=== PATIENT | male | born 1950 | race Caucasian/White ===

== ENCOUNTER 2016-09-20 20:06 | Emergency (ER) | payer OTHER ==
[~2016-09-20] VITALS: Ht 182.9 cm; Wt 112.0 kg
[~2016-09-20 20:06] MED LIST: CARV12.52 PO; LOSA100T PO; TAMS0.4C4 PO; ULOR80TA2 PO; ZITH250T PO
[2016-09-20 20:19] VITALS: BP 125/78; PULSE 72; RESP 18; TEMP 98.3; O2SAT 96
[2016-09-20] MEDS ORDERED: TAMS5CAP PO (20:31)
[2016-09-20] MEDS ORDERED: ULOR80TA2 PO (20:31)
[2016-09-20] MEDS ORDERED: LEXA10TA PO (20:31)
[2016-09-20] MEDS ORDERED: CARV12.52 PO (20:31)
[2016-09-20] MEDS ORDERED: LOSA100T PO (20:31)
--- NOTE | 2016-09-20 21:05 | PD ---
HPI Chief Complaint: Injury Time Seen by Provider: 21:02 Travel History International Travel<30 days: No Contact w/Intl Traveler<30days: No Traveled to known affect area: No History of Present Illness HPI Patient is a 66-year-old male presenting with tongue injury. He states that yesterday morning he woke up with swelling and bruising and abrasion on the left side of his tongue. He is prone to night terrors and nightmares and is wondering if he bit down his tongue during the night. It did not wake him until morning. He suffers falls out of bed when having nightmares but does not believe he fell out of bed. Denies history of seizure disorder. He states that it was really swollen and some points he had difficulty breathing. He has reduced oral intake during that time due to discomfort. He states he sat occasional metallic taste in his mouth when he rinsed his mouth he would have small amount of bright blood in the saliva. He has much improved today but he is worried about infection taking hold. He denies any fever, chills, lymphadenopathy or neck or oropharyngeal swelling. He denies sore throat difficulty swallowing or breathing presently. He used ice chips which seemed to help with swelling. He is on daily aspirin 81 mg. Additionally states he's been having some abdominal discomfort today around the umbilicus bilaterally in the epigastrium that feels like "sour stomach". She's had intermittent nausea without vomiting. One episode of loose stool. Denies hematochezia and melena. Denies dysuria, increased urinary urgency and frequency. He states that when he was younger he was frequent nosebleeds and when he swallowed the blood it would cause stomach upset and similar symptoms. He does have a history of GERD and PUD as a young adult. Last tetanus vaccine less than 5 years. PFSH Past Medical History Autoimmune Disease: Yes (GILL'S DISEASE) Cancer: No Cardiovascular Problems: Yes (HTN) High Cholesterol: Yes Diminished Hearing: No Endocrine: No Gastrointestinal Disorders: No Gout: Yes Genitourinary: No Hepatitis: No Hiatal Hernia: No Hypertension: Yes Immune Disorder: Yes (gout) Kidney Stones: Yes Musculoskeletal: Yes (gout, neck pain cervical disc disease) Neurologic: No Reproductive: No Respiratory: Yes (FREQUENT PNEUMONIA) Immunizations Current: Yes Pneumonia: Yes Thyroid Disease: No Tetanus Vaccination: < 5 Years Influenza Vaccination: Yes Past Surgical History Abdominal Surgery: No AICD: No Cardiac Surgery: No Ear Surgery: No Endocrine Surgery: No Eye Surgery: Yes (LIDS, cataract surgery done january and february 2015) Genitourinary Surgery: Yes (PROSTRATE SURGERY) Gynecologic Surgery: No Neurologic Surgery: No Oral Surgery: No Pacemaker: No Prostatectomy: Yes (NOT REMOVED BUT STATES HAS SURGERY ON PROSTATE) Thoracic Surgery: Yes (bilat leg vein stripping BITLATERAL LEGS) Tonsillectomy: Yes Other Surgery: Yes Social History Alcohol Use: No Tobacco Use: No (QUIT 1991 SMOKED CIGS 1 PPD FOR 20 YRS ) Substance Use: No Allergies-Medications (Allergen,Severity, Reaction): Coded Allergies: Morphine (Verified Allergy, Severe, ITCHING, 09/20/16) Percocet (Verified Allergy, Severe, HALLUCINATION, 09/20/16) Percodan (Unverified Adverse Reaction, Severe, HALLUCINATION, 09/20/16) Codeine (Verified Adverse Reaction, Intermediate, NAUSEA, 09/20/16) Uncoded Allergies: DISSOLVING STITCHES (Adverse Reaction, Intermediate, 10/16/13) Reported Meds & Prescriptions Reported Meds & Active Scripts Active Amoxicillin 500 Mg Cap 500 Mg PO TID 5 Days Bentyl (Dicyclomine HCl) 10 Mg Cap 10 Mg PO QID Reported Lexapro (Escitalopram Oxalate) 10 Mg Tab 10 Mg PO DAILY Flomax (Tamsulosin HCl) 0.4 Mg Cap 0.4 Mg PO HS Uloric (Febuxostat) 80 Mg Tab 1 Tab PO DAILY Losartan (Losartan Potassium) 100 Mg Tab 100 Mg PO DAILY Carvedilol 12.5 Mg Tab 12.5 Mg PO BID Review of Systems Except as stated in HPI: all other systems reviewed are Neg Physical Exam Narrative GENERAL: Well-developed and well-nourished adult male in no acute distress. SKIN: Warm and dry. Good turgor without tenting. HEAD: Normocephalic and atraumatic. EYES: PERRL bilaterally, 3mm. EOMI bilaterally. No injection or icterus present. No proptosis. Lids without edema or erythema. ENT: Nasal mucosa pink and moist without discharge, septum intact and midline. The tongue does have mild edema on the left side with resolving ecchymosis. There is a mild abrasion laterally without any lacerations or bleeding or drainage. Buccal mucosa pink and moist. Oropharynx free of erythema, tonsillar hypertrophy, masses, swelling, asymmetry and exudates. Uvula midline and airway patent. NECK: Supple, no midline tenderness, crepitus or step-offs. Trachea midline, no JVD. No cervical or facial lymphadenopathy. CARDIOVASCULAR: Regular rate and rhythm without murmurs, rubs, clicks or gallops. RESPIRATORY: Clear to auscultation bilaterally with symmetrical rise and fall, no distress or use of accessory muscles. GASTROINTESTINAL: Mild. Umbilical and epigastric tenderness without rebounding or guarding. No discoloration. Normal bowel sounds all 4 quadrants. No masses or organomegaly present. MUSCULOSKELETAL: No gait disturbances. Patient freely moving all four extremities spontaneously. Extremities without clubbing, cyanosis, or edema. No obvious deformities. NEUROLOGIC: CN II-XII grossly intact. Awake and alert. Motor grossly within normal limits. Normal speech. PSYCHIATRIC: Appropriate mood and affect; insight and judgment normal. Data Data Last Documented VS Vital Signs Date Time Temp Pulse Resp B/P Pulse Ox O2 Delivery O2 Flow Rate FiO2 09/20/16 20:31 09/20/16 20:19 98.3 72 18 96 Orders Complete Blood Count With Diff (09/20/16 21:01) Comprehensive Metabolic Panel (09/20/16 21:01) Lipase (09/20/16 21:01) Prothrombin Time / Inr (Pt) (09/20/16 21:01) Act Partial Throm Time (Ptt) (09/20/16 21:01) Ondansetron Inj (Zofran Inj) (09/20/16 21:15) Famotidine Inj (Pepcid Inj) (09/20/16 21:15) Labs Laboratory Tests Test 09/20/16 21:00 White Blood Count 6.5 TH/MM3 Red Blood Count 5.14 MIL/MM3 Hemoglobin 15.6 GM/DL Hematocrit 45.4 % Mean Corpuscular Volume 88.3 FL Mean Corpuscular Hemoglobin 30.3 PG Mean Corpuscular Hemoglobin 34.4 % Concent Red Cell Distribution Width 13.1 % Platelet Count 154 TH/MM3 Mean Platelet Volume 7.4 FL Neutrophils (%) (Auto) 68.6 % Lymphocytes (%) (Auto) 23.4 % Monocytes (%) (Auto) 5.6 % Eosinophils (%) (Auto) 2.0 % Basophils (%) (Auto) 0.4 % Neutrophils # (Auto) 4.5 TH/MM3 Lymphocytes # (Auto) 1.5 TH/MM3 Monocytes # (Auto) 0.4 TH/MM3 Eosinophils # (Auto) 0.1 TH/MM3 Basophils # (Auto) 0.0 TH/MM3 CBC Comment DIFF FINAL Differential Comment Prothrombin Time 11.6 SEC Prothromb Time International 1.0 RATIO Ratio Activated Partial 30.5 SEC Thromboplast Time Sodium Level 142 MEQ/L Potassium Level 4.3 MEQ/L Chloride Level 107 MEQ/L Carbon Dioxide Level 27.2 MEQ/L Anion Gap 8 MEQ/L Blood Urea Nitrogen 16 MG/DL Creatinine 1.30 MG/DL Estimat Glomerular Filtration 55 ML/MIN Rate Random Glucose 91 MG/DL Calcium Level 9.2 MG/DL Total Bilirubin 1.0 MG/DL Aspartate Amino Transf 25 U/L (AST/SGOT) Alanine Aminotransferase 58 U/L (ALT/SGPT) Alkaline Phosphatase 91 U/L Total Protein 7.4 GM/DL Albumin 4.1 GM/DL Lipase 137 U/L MDM Medical Decision Making Medical Screen Exam Complete: Yes Emergency Medical Condition: Yes Interpretation(s) Laboratory Tests Test 09/20/16 21:00 White Blood Count 6.5 TH/MM3 (4.0-11.0) Red Blood Count 5.14 MIL/MM3 (4.50-5.90) Hemoglobin 15.6 GM/DL (13.0-17.0) Hematocrit 45.4 % (39.0-51.0) Mean Corpuscular Volume 88.3 FL (80.0-100.0) Mean Corpuscular Hemoglobin 30.3 PG (27.0-34.0) Mean Corpuscular Hemoglobin 34.4 % Concent (32.0-36.0) Red Cell Distribution Width 13.1 % (11.6-17.2) Platelet Count 154 TH/MM3 (150-450) Mean Platelet Volume 7.4 FL (7.0-11.0) Neutrophils (%) (Auto) 68.6 % (16.0-70.0) Lymphocytes (%) (Auto) 23.4 % (9.0-44.0) Monocytes (%) (Auto) 5.6 % (0.0-8.0) Eosinophils (%) (Auto) 2.0 % (0.0-4.0) Basophils (%) (Auto) 0.4 % (0.0-2.0) Neutrophils # (Auto) 4.5 TH/MM3 (1.8-7.7) Lymphocytes # (Auto) 1.5 TH/MM3 (1.0-4.8) Monocytes # (Auto) 0.4 TH/MM3 (0-0.9) Eosinophils # (Auto) 0.1 TH/MM3 (0-0.4) Basophils # (Auto) 0.0 TH/MM3 (0-0.2) CBC Comment DIFF FINAL Differential Comment Prothrombin Time 11.6 SEC (9.8-11.6) Prothromb Time International 1.0 RATIO Ratio Activated Partial 30.5 SEC Thromboplast Time (24.3-30.1) Sodium Level 142 MEQ/L (136-145) Potassium Level 4.3 MEQ/L (3.5-5.1) Chloride Level 107 MEQ/L (98-107) Carbon Dioxide Level 27.2 MEQ/L (21.0-32.0) Anion Gap 8 MEQ/L (5-15) Blood Urea Nitrogen 16 MG/DL (7-18) Creatinine 1.30 MG/DL (0.60-1.30) Estimat Glomerular Filtration 55 ML/MIN (>89) Rate Random Glucose 91 MG/DL (74-106) Calcium Level 9.2 MG/DL (8.5-10.1) Total Bilirubin 1.0 MG/DL (0.2-1.0) Aspartate Amino Transf 25 U/L (15-37) (AST/SGOT) Alanine Aminotransferase 58 U/L (12-78) (ALT/SGPT) Alkaline Phosphatase 91 U/L (45-117) Total Protein 7.4 GM/DL (6.4-8.2) Albumin 4.1 GM/DL (3.4-5.0) Lipase 137 U/L (73-393) Differential Diagnosis Tongue abrasion versus tongue contusion versus gastritis versus gastritis versus pancreatic pedis versus PUD Narrative Course Versus 66-year-old male with 2 day history of swelling and pain of the left side of the tongue after a likely benefit in the middle of night. It did not wake him up but when he was woke up in the morning he had pain and swelling. Reduced oral intake due to this. It has improved with application of ice and time. Minimal occasional scant bleeding. Tetanus are up-to-date. There is a small abrasion on the tongue and there is resolving ecchymosis only mild edema of the tongue laterally. The oropharynx is unremarkable. No evidence of airway compromise. The patient has a tooth was pulled on the left upper jaw he states that he frequently in his sleep we'll try to stick his tongue through the area and thinks he bit down on it. He's had no neurologic symptoms or signs of seizure disorder present or in the past. He is hemodynamically stable with normal vitals. He's having some abdominal discomfort, nausea and one episode of loose stool she relates to possibly ingesting small amount of blood. Belly is benign on exam only mild tenderness. Patient was given ranitidine, Zofran and ordered labs are unremarkable. Given prescription for Bentyl, amoxicillin for 5 days to prevent infection and recommended OTC Zantac and bland diet.See discharge paperwork for further instructions. The plan was discussed with the patient who acknowledged their understanding and agreement. Reinforced the follow-up with primary care is critically important. Patient instructed on emergent conditions that should prompt return to ED. Diagnosis Primary Impression: Tongue abnormality Additional Impression: Gastroenteritis Patient Instructions: Gastroenteritis (ED), General Instructions Additional Instructions: Take medications as prescribed Recommend bland, low-salt/low spice diet until gastrointestinal and tongue symptoms resolve Drink lots of fluids and stay well-hydrated OTC ibuprofen or Tylenol as needed for comfort Follow-up with PCP in 2-3 days Return to the ED for any acute worsening of symptoms Scripts Amoxicillin 500 Mg [id number] Mg PO TID 5 Days Ref 0 Prov:Poncho Rdz MD 09/20/16 Dicyclomine (Bentyl)10 Mg Cap10 Mg PO QID #12 CAP Ref 0 Prov:Poncho Rdz MD 09/20/16 Disposition: 01 DISCHARGE HOME Condition: Stable Tai Rodrigez III Sep 20, 2016 21:05
[2016-09-20] MEDS ORDERED: FAMOTIDINE 20 MG/2 ML VIAL IV PUSH ONE (21:15)
[2016-09-20] MEDS ORDERED: ONDANSETRON HCL 4 MG/2 ML VIAL IV PUSH ONE (21:15)
[2016-09-20 21:16] LABS: AUTOMATED NEUTROPHIL # 4.5 TH/MM3 (1.8-7.7); BASOPHIL % 0.4 % (0.0-2.0); EOSINOPHIL # 0.1 TH/MM3 (0-0.4); HEMATOCRIT 45.4 % (39.0-51.0); HEMO FLAGS DIFF FINAL; LYMPH % 23.4 % (9.0-44.0); LYMPHOCYTE # 1.5 TH/MM3 (1.0-4.8); MEAN CELL VOLUME 88.3 FL (80.0-100.0); MEAN CORPUSCULAR HEMOGLOBIN 30.3 PG (27.0-34.0); MEAN CORPUSCULAR HGB CONC 34.4 % (32.0-36.0); MONO % 5.6 % (0.0-8.0); NEUT % 68.6 % (16.0-70.0); PLATELET COUNT 154 TH/MM3 (150-450); RED BLOOD COUNT 5.14 MIL/MM3 (4.50-5.90); RED CELL DISTRIBUTION WIDTH 13.1 % (11.6-17.2); WHITE BLOOD COUNT 6.5 TH/MM3 (4.0-11.0)
[2016-09-20 21:24] LABS: CHLORIDE 107 MEQ/L (98-107); POTASSIUM 4.3 MEQ/L (3.5-5.1); SODIUM (NA) 142 MEQ/L (136-145)
[2016-09-20 21:28] LABS: ANION GAP 8 MEQ/L (5-15); BICARBONATE 27.2 MEQ/L (21.0-32.0); BLOOD UREA NITROGEN 16 MG/DL (7-18)
[2016-09-20 21:29] LABS: APTT (PATIENT) 30.5 SEC (24.3-30.1); PROTHROMBIN TIME - PATIENT 11.6 SEC (9.8-11.6)
[2016-09-20] MEDS ORDERED: DICY10 PO (21:29)
[2016-09-20] MEDS ORDERED: AMOX500C PO (21:29)
[2016-09-20 21:31] LABS: ALT (GPT) 58 U/L (12-78); AST (GOT) 25 U/L (15-37); GLOMERULAR FILTRATION RATE 55 ML/MIN (>89)
[2016-09-20 21:34] LABS: ALKALINE PHOSPHATASE 91 U/L (45-117)
== END 2016-09-20 21:44 | disposition home or self-care (01) ==
LOC: PHEFT 20:06
DX: K14.8 Other diseases of tongue (principal); K52.9 Noninfective gastroenteritis and colitis, unspecified; I10 Essential (primary) hypertension; Z87.442 Personal history of urinary calculi
CPT/HCPCS: 80053; 83690; 85025; 85610; 85730; 96374; 96375; 99283; J2405

== ENCOUNTER 2016-11-02 22:04 | Emergency (ER) | payer OTHER ==
[~2016-11-02] VITALS: Ht 182.9 cm; Wt 113.6 kg
[~2016-11-02 22:04] MED LIST changes: +AMOX500C PO; +DICY10 PO; +LEXA10TA PO; -TAMS0.4C4 PO; +TAMS5CAP PO; -ZITH250T PO
[2016-11-02 22:17] VITALS: BP 145/93; PULSE 85; RESP 18; TEMP 97.8; O2SAT 97
[2016-11-02] MEDS ORDERED: SODIUM CHLOR 0.9% 1000 ML INJ 1,000 ML IV ONE (22:56)
--- NOTE | 2016-11-02 22:56 | PD ---
HPI Chief Complaint: Abdominal Pain Time Seen by Provider: 22:42 Travel History International Travel<30 days: No Contact w/Intl Traveler<30days: No Traveled to known affect area: No History of Present Illness HPI The patient is a 66-year-old male with an extensive history of kidney stones who complains of right flank pain and blood in urination. The patient felt he passed 2 small stones when he urinated and shows me a picture on a cell phone of the stones in the toilet. He denies any fever, nausea, vomiting or diarrhea. He still complains of persistent pain in the right flank. He does have a history of gout. PFSH Past Medical History Hx Anticoagulant Therapy: Yes (81mg aspirin) Autoimmune Disease: Yes (GILL'S DISEASE) Cancer: No Cardiovascular Problems: Yes High Cholesterol: Yes Diminished Hearing: No Endocrine: No Gastrointestinal Disorders: No Gout: Yes Genitourinary: No Hepatitis: No Hiatal Hernia: No Hypertension: Yes Immune Disorder: Yes (gout) Kidney Stones: Yes Medical other: Yes (broken tooth, vertigo, tinnitus) Musculoskeletal: Yes (gout, neck pain cervical disc disease) Neurologic: No Reproductive: No Respiratory: Yes (FREQUENT PNEUMONIA) Immunizations Current: Yes Pneumonia: Yes Thyroid Disease: No Tetanus Vaccination: < 5 Years Influenza Vaccination: Yes Past Surgical History Abdominal Surgery: No AICD: No Cardiac Surgery: No Cholecystectomy: Yes Ear Surgery: No Endocrine Surgery: No Eye Surgery: Yes (LIDS, cataract surgery done january and february 2015) Genitourinary Surgery: Yes (PROSTATE SURGERY) Gynecologic Surgery: No Neurologic Surgery: No Oral Surgery: No Pacemaker: No Prostatectomy: Yes (NOT REMOVED BUT STATES HAS SURGERY ON PROSTATE) Thoracic Surgery: Yes (bilat leg vein stripping BITLATERAL LEGS) Tonsillectomy: Yes Other Surgery: Yes Social History Alcohol Use: No Tobacco Use: No (QUIT 1991 SMOKED CIGS 1 PPD FOR 20 YRS ) Substance Use: No Allergies-Medications (Allergen,Severity, Reaction): Coded Allergies: Morphine (Verified Allergy, Severe, ITCHING, 11/02/16) Percocet (Verified Allergy, Severe, HALLUCINATION, 11/02/16) Percodan (Unverified Adverse Reaction, Severe, HALLUCINATION, 11/02/16) Codeine (Verified Adverse Reaction, Intermediate, NAUSEA, 11/02/16) Uncoded Allergies: DISSOLVING STITCHES (Adverse Reaction, Intermediate, 10/16/13) Reported Meds & Prescriptions Reported Meds & Active Scripts Active Reported Lexapro (Escitalopram Oxalate) 10 Mg Tab 10 Mg PO DAILY Flomax (Tamsulosin HCl) 0.4 Mg Cap 0.4 Mg PO HS Uloric (Febuxostat) 80 Mg Tab 1 Tab PO DAILY Losartan (Losartan Potassium) 100 Mg Tab 100 Mg PO DAILY Carvedilol 12.5 Mg Tab 12.5 Mg PO BID Review of Systems Except as stated in HPI: all other systems reviewed are Neg Physical Exam Narrative GENERAL: The patient is alert, oriented 3 in moderate apparent distress with his right flank pain. His vital signs show blood pressure 145/93 but are otherwise normal. SKIN: Warm and dry. HEAD: Atraumatic. Normocephalic. EYES: Pupils equal and round. No scleral icterus. No injection or drainage. ENT: No nasal bleeding or discharge. Mucous membranes pink and moist. NECK: Trachea midline. No JVD. CARDIOVASCULAR: Regular rate and rhythm. No murmur appreciated. RESPIRATORY: No accessory muscle use. Clear to auscultation. Breath sounds equal bilaterally. GASTROINTESTINAL: Abdomen soft, with tenderness to direct palpation over the right flank, nondistended. Hepatic and splenic margins not palpable. There is a slight UVJ tenderness on the right. No guarding or rebound is present. MUSCULOSKELETAL: No obvious deformities. No clubbing. No cyanosis. No edema. NEUROLOGICAL: Awake and alert. No obvious cranial nerve deficits. Motor grossly within normal limits. Normal speech. PSYCHIATRIC: Appropriate mood and affect; insight and judgment normal. Data Data Last Documented VS Vital Signs Date Time Temp Pulse Resp B/P Pulse Ox O2 Delivery O2 Flow Rate FiO2 11/03/16 00:00 75 18 140/92 95 Room Air 11/02/16 22:17 97.8 Orders Complete Blood Count With Diff (11/02/16 22:56) Comprehensive Metabolic Panel (11/02/16 22:56) Urinalysis - C+S If Indicated (11/02/16 22:56) Ct Abd/Pel W/O Iv Contrast (11/02/16 22:56) Ecg Monitoring (11/02/16 22:56) Iv Access Insert/Monitor (11/02/16 22:56) Ketorolac Inj (Toradol Inj) (11/02/16 23:00) Ondansetron Inj (Zofran Inj) (11/02/16 23:00) Sodium Chloride 0.9% Flush (Ns Flush) (11/02/16 23:00) Sodium Chlor 0.9% 1000 Ml Inj (Ns 1000 M (11/02/16 22:56) Hydromorphone Pf Inj (Dilaudid Pf Inj) (11/02/16 23:00) Labs Laboratory Tests Test 11/02/16 23:05 White Blood Count 6.9 TH/MM3 Red Blood Count 4.82 MIL/MM3 Hemoglobin 14.8 GM/DL Hematocrit 42.4 % Mean Corpuscular Volume 88.0 FL Mean Corpuscular Hemoglobin 30.7 PG Mean Corpuscular Hemoglobin 34.8 % Concent Red Cell Distribution Width 12.4 % Platelet Count 152 TH/MM3 Mean Platelet Volume 7.8 FL Neutrophils (%) (Auto) 64.7 % Lymphocytes (%) (Auto) 25.4 % Monocytes (%) (Auto) 6.3 % Eosinophils (%) (Auto) 3.0 % Basophils (%) (Auto) 0.6 % Neutrophils # (Auto) 4.5 TH/MM3 Lymphocytes # (Auto) 1.8 TH/MM3 Monocytes # (Auto) 0.4 TH/MM3 Eosinophils # (Auto) 0.2 TH/MM3 Basophils # (Auto) 0.0 TH/MM3 CBC Comment DIFF FINAL Differential Comment Urine Color RED Urine Turbidity CLOUDY Urine pH 6.0 Urine Specific [place] 1.020 Urine Protein TRACE mg/dL Urine Glucose (UA) NEG mg/dL Urine Ketones NEG mg/dL Urine Occult Blood LARGE Urine Nitrite NEG Urine Bilirubin NEG Urine Leukocyte Esterase NEG Urine RBC INNUM /hpf Urine WBC 3-5 /hpf Urine Squamous Epithelial 0-5 /hpf Cells Urine Bacteria NONE /hpf Microscopic Urinalysis Comment CULT NOT INDICATED Sodium Level 144 MEQ/L Potassium Level 4.3 MEQ/L Chloride Level 109 MEQ/L Carbon Dioxide Level 26.6 MEQ/L Anion Gap 8 MEQ/L Blood Urea Nitrogen 23 MG/DL Creatinine 1.30 MG/DL Estimat Glomerular Filtration 55 ML/MIN Rate Random Glucose 97 MG/DL Calcium Level 8.8 MG/DL Total Bilirubin 0.4 MG/DL Aspartate Amino Transf 26 U/L (AST/SGOT) Alanine Aminotransferase 61 U/L (ALT/SGPT) Alkaline Phosphatase 95 U/L Total Protein 6.9 GM/DL Albumin 3.9 GM/DL MDM Medical Decision Making Medical Screen Exam Complete: Yes Emergency Medical Condition: Yes Medical Record Reviewed: Yes Interpretation(s) The CBC is normal. The complete metabolic profile shows a BUN of 23, GFR 55 but is otherwise unremarkable. The urine is red with large amount of blood and innumerable red cells but is otherwise normal and culture is not indicated. Differential Diagnosis Calcium oxalate stones, uric acid stones, urinary tract infection, acute cholecystitis, appendicitis Narrative Course The patient perceives his pain on the right flank but his 1.3 cm ureteral stone is on the left. The patient does have pain and he is not likely to pass this stone. He should follow-up with a urologist calling their office Saturday to set up an appointment. He is given Dilaudid, Phenergan, Flomax and Motrin. He already takes Flomax every morning. He should take the Motrin regularly, 1 tablet 3 times daily. Diagnosis Primary Impression: Left ureteral calculus Additional Instructions: As we discussed, you are unlikely to pass this stone on the left and you should follow-up with urologist as soon as possible. Call Saturday to set up an appointment. Do not drink alcohol or drive on the Dilaudid. You may wish to break the Dilaudid tablets in half. Med/Other Pt SpecificInfo: Prescription(s) given Scripts Ibuprofen 800 Mg [id number] Mg PO TID #45 TAB Ref 0 Prov:Raleigh Sauer MD 11/03/16 Hydromorphone (Dilaudid)2 Mg Tab2 Mg PO Q6H PRN (Pain Management) #30 TAB Ref 0 Prov:Raleigh Sauer MD 11/03/16 Promethazine (Phenergan)25 Mg Tab25 Mg PO Q6H PRN (Nausea/Vomiting) #30 TAB Ref 0 Prov:Raleigh Sauer MD 11/03/16 Tamsulosin (Flomax)0.4 Mg Cap0.4 Mg PO HS #30 CAP Ref 0 Prov:Raleigh Sauer MD 11/03/16 Disposition: 01 DISCHARGE HOME Condition: Stable Raleigh Sauer MD Nov 02, 2016 22:55
[2016-11-02 23:00] VITALS: BP 157/78; PULSE 72; RESP 18; O2SAT 95
[2016-11-02] MEDS ORDERED: ONDANSETRON HCL 4 MG/2 ML VIAL IVP ONE (23:00)
[2016-11-02] MEDS ORDERED: HYDROmorphone HCL PF 1 MG/ML VIAL IVS ONE (23:00)
[2016-11-02] MEDS ORDERED: KETOROLAC TROMETHAMINE 30 MG/ML (IVP) VIAL IVP ONE (23:00)
[2016-11-02] MEDS ORDERED: SODIUM CHLORIDE 0.9% FLUSH 5 ML FLUSH IVF PRN (23:00)
[2016-11-02 23:19] LABS: AUTOMATED NEUTROPHIL # 4.5 TH/MM3 (1.8-7.7); BASOPHIL % 0.6 % (0.0-2.0); EOSINOPHIL # 0.2 TH/MM3 (0-0.4); HEMATOCRIT 42.4 % (39.0-51.0); HEMO FLAGS DIFF FINAL; LYMPH % 25.4 % (9.0-44.0); LYMPHOCYTE # 1.8 TH/MM3 (1.0-4.8); MEAN CORPUSCULAR HEMOGLOBIN 30.7 PG (27.0-34.0); MEAN CORPUSCULAR HGB CONC 34.8 % (32.0-36.0); MONO % 6.3 % (0.0-8.0); NEUT % 64.7 % (16.0-70.0); PLATELET COUNT 152 TH/MM3 (150-450); RED BLOOD COUNT 4.82 MIL/MM3 (4.50-5.90); RED CELL DISTRIBUTION WIDTH 12.4 % (11.6-17.2); WHITE BLOOD COUNT 6.9 TH/MM3 (4.0-11.0)
[2016-11-02 23:23] LABS: BLOOD, URINE LARGE (NEG); GLUCOSE,URINE NEG (NEG); KETONE, URINE NEG (NEG); NITRITE,URINE NEG (NEG)
[2016-11-02 23:24] LABS: COMMENT (UR) CULT NOT INDICATED; CULTURE IF INDICATED CULT NOT INDICATED; RBC, URINE INNUM /hpf (0-3); SQUAMOUS EPITHELIAL CELL URINE 0-5 /hpf (0-5); URINE COLOR RED (YELLW/STRAW)
[2016-11-02 23:25] LABS: CHLORIDE 109 MEQ/L (98-107); POTASSIUM 4.3 MEQ/L (3.5-5.1); SODIUM (NA) 144 MEQ/L (136-145)
[2016-11-02 23:29] LABS: ANION GAP 8 MEQ/L (5-15); BICARBONATE 26.6 MEQ/L (21.0-32.0); BLOOD UREA NITROGEN 23 MG/DL (7-18)
[2016-11-02 23:32] LABS: ALT (GPT) 61 U/L (12-78); AST (GOT) 26 U/L (15-37); GLOMERULAR FILTRATION RATE 55 ML/MIN (>89)
[2016-11-02 23:34] LABS: TOTAL BILIRUBIN ADULT 0.4 MG/DL (0.2-1.0)
[2016-11-02 23:35] LABS: ALKALINE PHOSPHATASE 95 U/L (45-117)
[2016-11-03] VITALS: BP 140/92; PULSE 75; RESP 18; O2SAT 95
--- NOTE | 2016-11-03 00:16 | RADHPO ---
EXAM DATE/TIME: 11/02/2016 23:10 [facility] COMPARISON: CT ABDOMEN & PELVIS W/O CONTRAST, July 18, 2014, 17:26. INDICATIONS : Right sided flank pain with hematuria. ORAL CONTRAST: No oral contrast ingested. RADIATION DOSE: 27.38 CTDIvol (mGy) MEDICAL HISTORY : Renal calculi. Hypertension. Diabetes. SURGICAL HISTORY : Cholecystectomy. ENCOUNTER: Initial ACUITY: 1 day PAIN SCALE: 7/10 LOCATION: Right flank TECHNIQUE: Volumetric scanning of the abdomen and pelvis was performed. Using automated exposure control and ad justment of the mA and/or kV according to patient size, radiation dose was kept as low as reasonably achievable to obtain optimal diagnostic quality images. FINDINGS: There is diffuse decreased density of the liver characteristic of hepatic steatosis. Mild spleno megaly at 15.1 cm. Pancreas, adrenal glands, stomach are unremarkable. 2 mm nonobstructing right lowe r pole calculus on image 71. Adjacent cyst again noted measuring 1.8 cm on image 74. Small exophytic cyst right midpole laterally on image 59 again seen. A 0.5 mm nonobstructing calculus right midpole o n image 59 and 1 mm punctate calculus right mid pole 160. On the left there is a nonobstructing stone at the lower pole measuring 1.2 cm. Left midpole cyst measuring 4.6 cm anteriorly. 3.[address] identified. 2 mm nonobstructing left mid pole calculus on image 57. Moderate left hydronephrosis i s seen secondary to an obstructing calculus proximally within the ureter measuring 1.3 cm on image 89 . Urinary bladder unremarkable. Prostate, small and large bowel are unremarkable. No adenopathy or an eurysm. Scattered atherosclerotic calcifications are seen. Lung bases are clear. Degenerative changes of the spine are noted. CONCLUSION: 1. Obstructing left proximal ureteral stone with associated hydronephrosis. 2. Bilateral nonobstructing renal calculi and renal cysts. 3. Splenic cyst and splenomegaly. 4. Hepatic steatosis. Nick Rosenberg MD on November 03, 2016 at 0:12 Board Certified Radiologist. This report was verified electronically.
[2016-11-03] MEDS ORDERED: IBUP800T23 PO (00:48)
[2016-11-03] MEDS ORDERED: PROM25TA5 PO (00:48)
[2016-11-03] MEDS ORDERED: TAMS5CAP PO (00:48)
[2016-11-03] MEDS ORDERED: DILA2TAB2 PO (00:48)
[2016-11-03 01:12] VITALS: BP 143/82; TEMP 98.8
== END 2016-11-03 01:21 | disposition home or self-care (01) ==
LOC: PHED 22:04
DX: N20.1 Calculus of ureter (principal); M10.9 Gout, unspecified
CPT/HCPCS: 74176; 80053; 81001; 85025; 96361; 96374; 96375; 99284; J1170; J1885; J2405; J7030

== ENCOUNTER 2017-03-02 22:09 | Emergency (ER) | payer OTHER ==
[~2017-03-02] VITALS: Ht 182.9 cm; Wt 114.0 kg
[~2017-03-02 22:09] MED LIST changes: -AMOX500C PO; -DICY10 PO; +DILA2TAB2 PO; +IBUP800T23 PO; +PROM25TA5 PO
[2017-03-02 22:44] VITALS: BP 166/94; PULSE 74; RESP 16; TEMP 98.1; O2SAT 97
[2017-03-02] MEDS ORDERED: SODIUM CHLOR 0.9% 1000 ML INJ 1,000 ML IV ONE (23:05)
--- NOTE | 2017-03-02 23:07 | PD ---
HPI Chief Complaint: right flank pain Time Seen by Provider: 23:05 Travel History International Travel<30 days: No Contact w/Intl Traveler<30days: No Traveled to known affect area: No History of Present Illness HPI The patient is a 67-year-old male with a long history of kidney stones who complains of right flank pain for 5 years. He states that he was told by his urologist, Dr. cottrell, that he had no kidney stones on the right. He was told this about 4-5 weeks ago. He does have blood in his urine. He wants to be checked out because his father had pancreatic cancer and he wants to make sure that he does not also have this. He states he has a pain of 10 over 10 which is like a hot knife stabbing him in this area. PFSH Past Medical History Hx Anticoagulant Therapy: Yes (81mg aspirin) Autoimmune Disease: Yes (GILL'S DISEASE) Cancer: No Cardiovascular Problems: Yes High Cholesterol: Yes Diminished Hearing: No Endocrine: No Gastrointestinal Disorders: No Gout: Yes Genitourinary: No Hepatitis: No Hiatal Hernia: No Hypertension: Yes Immune Disorder: Yes (gout) Kidney Stones: Yes Musculoskeletal: Yes (gout, neck pain cervical disc disease) Neurologic: No Reproductive: No Respiratory: Yes (FREQUENT PNEUMONIA) Immunizations Current: Yes Pneumonia: Yes Thyroid Disease: No Past Surgical History Abdominal Surgery: No AICD: No Cardiac Surgery: No Cholecystectomy: Yes Ear Surgery: No Endocrine Surgery: No Eye Surgery: Yes (LIDS, cataract surgery done january and february 2015) Genitourinary Surgery: Yes (PROSTATE SURGERY) Gynecologic Surgery: No Neurologic Surgery: No Oral Surgery: No Pacemaker: No Prostatectomy: Yes (NOT REMOVED BUT STATES HAS SURGERY ON PROSTATE) Thoracic Surgery: Yes (bilat leg vein stripping BITLATERAL LEGS) Tonsillectomy: Yes Other Surgery: Yes Social History Alcohol Use: No Tobacco Use: No (QUIT 1991 SMOKED CIGS 1 PPD FOR 20 YRS ) Substance Use: No Allergies-Medications (Allergen,Severity, Reaction): Coded Allergies: Morphine (Verified Allergy, Severe, ITCHING, 03/02/17) Percocet (Verified Allergy, Severe, HALLUCINATION, 03/02/17) Percodan (Unverified Adverse Reaction, Severe, HALLUCINATION, 03/02/17) Codeine (Verified Adverse Reaction, Intermediate, NAUSEA, 03/02/17) Uncoded Allergies: DISSOLVING STITCHES (Adverse Reaction, Intermediate, 10/16/13) Reported Meds & Prescriptions Reported Meds & Active Scripts Active Reported Flomax (Tamsulosin HCl) 0.4 Mg Cap 0.4 Mg PO HS Uloric (Febuxostat) 80 Mg Tab 1 Tab PO DAILY Losartan (Losartan Potassium) 100 Mg Tab 100 Mg PO DAILY Carvedilol 12.5 Mg Tab 12.5 Mg PO BID Review of Systems Except as stated in HPI: all other systems reviewed are Neg Physical Exam Narrative GENERAL: The patient is alert, oriented 3 in moderate apparent distress with his right flank pain. His vital signs show blood pressure 166/94 but are otherwise normal. SKIN: Focused skin assessment warm/dry. HEAD: Atraumatic. Normocephalic. EYES: Pupils equal and round. No scleral icterus. No injection or drainage. ENT: No nasal bleeding or discharge. Mucous membranes pink and moist. NECK: Trachea midline. No JVD. CARDIOVASCULAR: Regular rate and rhythm. No murmur appreciated. There is tenderness over the right lower ribs but no crepitus, neither bony nor air is present. The patient states that the pain is inside and not on the ribs. RESPIRATORY: No accessory muscle use. Clear to auscultation. Breath sounds equal bilaterally. GASTROINTESTINAL: Abdomen soft, non-tender, nondistended. Hepatic and splenic margins not palpable. MUSCULOSKELETAL: No obvious deformities. No clubbing. No cyanosis. No edema. NEUROLOGICAL: Awake and alert. No obvious cranial nerve deficits. Motor grossly within normal limits. Normal speech. PSYCHIATRIC: Appropriate mood and affect; insight and judgment normal. Data Data Last Documented VS Vital Signs Date Time Temp Pulse Resp B/P Pulse Ox O2 Delivery O2 Flow Rate FiO2 03/02/17 22:44 98.1 74 16 166/94 97 Orders Complete Blood Count With Diff (03/02/17 23:05) Comprehensive Metabolic Panel (03/02/17 23:05) Ct Abd/Pel W/O Iv Contrast (03/02/17 23:05) Ecg Monitoring (03/02/17 23:05) Iv Access Insert/Monitor (03/02/17 23:05) Ketorolac Inj (Toradol Inj) (03/02/17 23:15) Sodium Chloride 0.9% Flush (Ns Flush) (03/02/17 23:15) Sodium Chlor 0.9% 1000 Ml Inj (Ns 1000 M (03/02/17 23:05) Lipase (03/02/17 23:11) Ondansetron Inj (Zofran Inj) (03/02/17 23:30) Labs Laboratory Tests Test 03/02/17 23:25 White Blood Count 7.1 TH/MM3 Red Blood Count 4.90 MIL/MM3 Hemoglobin 14.7 GM/DL Hematocrit 42.6 % Mean Corpuscular Volume 87.0 FL Mean Corpuscular Hemoglobin 30.1 PG Mean Corpuscular Hemoglobin 34.6 % Concent Red Cell Distribution Width 12.6 % Platelet Count 170 TH/MM3 Mean Platelet Volume 7.4 FL Neutrophils (%) (Auto) 63.4 % Lymphocytes (%) (Auto) 25.7 % Monocytes (%) (Auto) 6.5 % Eosinophils (%) (Auto) 3.3 % Basophils (%) (Auto) 1.1 % Neutrophils # (Auto) 4.5 TH/MM3 Lymphocytes # (Auto) 1.8 TH/MM3 Monocytes # (Auto) 0.5 TH/MM3 Eosinophils # (Auto) 0.2 TH/MM3 Basophils # (Auto) 0.1 TH/MM3 CBC Comment DIFF FINAL Differential Comment Lipase 162 U/L Sodium Level 145 MEQ/L Potassium Level 3.8 MEQ/L Chloride Level 110 MEQ/L Carbon Dioxide Level 27.0 MEQ/L Anion Gap 8 MEQ/L Blood Urea Nitrogen 16 MG/DL Creatinine 1.30 MG/DL Estimat Glomerular Filtration 55 ML/MIN Rate Random Glucose 86 MG/DL Calcium Level 9.2 MG/DL Total Bilirubin 0.5 MG/DL Aspartate Amino Transf 26 U/L (AST/SGOT) Alanine Aminotransferase 51 U/L (ALT/SGPT) Alkaline Phosphatase 86 U/L Total Protein 7.0 GM/DL Albumin 3.9 GM/DL MDM Medical Decision Making Medical Screen Exam Complete: Yes Emergency Medical Condition: Yes Medical Record Reviewed: Yes Interpretation(s) The CBC is completely normal. The lipase is normal. The complete metabolic profile shows a GFR 55 but is otherwise unremarkable. The CT abdomen/pelvis shows severe hepatic steatosis, cholecystectomy, slight nodularity of the left adrenal gland which is stable, mild obstructive uropathy on the left secondary to a proximal ureteral calculus measuring 9.4 mm. Several other calculi are seen on the distal left ureter measuring 3.6 mm in size. There is several small bladder calculi and bilateral renal densities, likely cyst. Differential Diagnosis Ureteral stone, colitis, pyelonephritis, rib pain, electrolyte disorder, renal insufficiency, anemia Narrative Course The patient has left-sided ureteral stones but there is no evidence on the CT for what is causing the right sided flank pain. This may simply be rib pain. Plan: Patient be given Zofran 8 mg because 4 mg was not enough to completely resolve his nausea. He will take it 3 times daily. He needs to follow-up with his urologist. Diagnosis Primary Impression: Right flank pain, chronic Additional Impression: Left ureteral calculus Additional Instructions: As we discussed, follow-up with Dr. Sousa about the left ureteral stones that you still have. Increase liquid intake. Med/Other Pt SpecificInfo: Prescription(s) given Scripts Ondansetron (Zofran)8 Mg Tab8 Mg PO TID #30 TAB Ref 0 Prov:Raleigh Sauer MD 03/03/17 Disposition: 01 DISCHARGE HOME Condition: Stable Raleigh Sauer MD Mar 02, 2017 23:07
[2017-03-02] MEDS ORDERED: SODIUM CHLORIDE 0.9% FLUSH 10 ML FLUSH IVF PRN (23:15)
[2017-03-02] MEDS ORDERED: KETOROLAC TROMETHAMINE 30 MG/ML (IVP) VIAL IVP ONE (23:15)
[2017-03-02] MEDS ORDERED: ONDANSETRON HCL 4 MG/2 ML VIAL IV ONE (23:30)
[2017-03-02 23:34] LABS: AUTOMATED NEUTROPHIL # 4.5 TH/MM3 (1.8-7.7); BASOPHIL # 0.1 TH/MM3 (0-0.2); BASOPHIL % 1.1 % (0.0-2.0); EOSINOPHIL # 0.2 TH/MM3 (0-0.4); EOSINOPHIL % 3.3 % (0.0-4.0); HEMATOCRIT 42.6 % (39.0-51.0); HEMO FLAGS DIFF FINAL; LYMPH % 25.7 % (9.0-44.0); LYMPHOCYTE # 1.8 TH/MM3 (1.0-4.8); MEAN CORPUSCULAR HEMOGLOBIN 30.1 PG (27.0-34.0); MEAN CORPUSCULAR HGB CONC 34.6 % (32.0-36.0); MONO % 6.5 % (0.0-8.0); NEUT % 63.4 % (16.0-70.0); PLATELET COUNT 170 TH/MM3 (150-450); RED CELL DISTRIBUTION WIDTH 12.6 % (11.6-17.2); WHITE BLOOD COUNT 7.1 TH/MM3 (4.0-11.0)
[2017-03-02 23:45] VITALS: BP 169/89; PULSE 62; RESP 18; O2SAT 97
[2017-03-02 23:53] LABS: CHLORIDE 110 MEQ/L (98-107); POTASSIUM 3.8 MEQ/L (3.5-5.1); SODIUM (NA) 145 MEQ/L (136-145)
[2017-03-02 23:57] LABS: ANION GAP 8 MEQ/L (5-15); BLOOD UREA NITROGEN 16 MG/DL (7-18)
--- NOTE | 2017-03-02 23:59 | RADRPT ---
EXAM DATE/TIME: 03/02/2017 23:21 [facility] COMPARISON: No previous studies available for comparison. INDICATIONS : Right flank and back pain. ORAL CONTRAST: No oral contrast ingested. RADIATION DOSE: 27.31 CTDIvol (mGy) MEDICAL HISTORY : Cardiovascular disease. Hypertension. Diabetes mellitus type 2.Winston's disease SURGICAL HISTORY : Prostatectomy. ENCOUNTER: Initial ACUITY: 1 day PAIN SCALE: 6/10 LOCATION: Right flank TECHNIQUE: Volumetric scanning of the abdomen and pelvis was performed. Using automated exposure control and ad justment of the mA and/or kV according to patient size, radiation dose was kept as low as reasonably achievable to obtain optimal diagnostic quality images. DICOM format image data is available electro nically for review and comparison. FINDINGS: LOWER LUNGS: The visualized lower lungs are clear. LIVER: Increased attenuation without lesion. There is no dilation of the biliary tree. Cholecystectomy clip s. SPLEEN: Slightly large. Low-density lesion is unchanged.. PANCREAS: Within normal limits on the right. Slight nodularity of the left. KIDNEYS: Normal in size and shape. Mild obstructive uropathy on the left secondary to a proximal ureteral calc ulus measuring 9 x 4 mm. Punctate nonobstructing bilateral renal calculi. Numerous bilateral renal cy sts. Multiple other calculi in the distal left ureter measuring 3-6 mm in size. ADRENAL GLANDS: Within normal limits. VASCULAR: There is no aortic aneurysm. BOWEL/MESENTERY: The stomach, small bowel, and colon demonstrate no acute abnormality. There is no free intraperitone al air or fluid. ABDOMINAL WALL: Within normal limits. RETROPERITONEUM: There is no lymphadenopathy. BLADDER: No wall thickening or mass. There are some layering calculi. REPRODUCTIVE: Within normal limits. INGUINAL: There is no lymphadenopathy. Small fat containing bilateral inguinal hernias. MUSCULOSKELETAL: Within normal limits for patient age. CONCLUSION: 1. Severe hepatic steatosis. 2. Cholecystectomy. 3. Slight nodularity left adrenal gland, stable. 4. Mild obstructive uropathy on the left secondary to a proximal ureteral calculus measuring 9 x 4 mm . 5. Several other calculi are seen in the distal left ureter measuring 3-6 mm in size. 6. Several small bladder calculi. 7. Bilateral renal densities, likely cysts. Lior Leavitt MD on March 02, 2017 at 23:54 Board Certified Radiologist. This report was verified electronically.
[2017-03-03] LABS: ALT (GPT) 51 U/L (12-78); AST (GOT) 26 U/L (15-37); GLOMERULAR FILTRATION RATE 55 ML/MIN (>89)
[2017-03-03 00:01] LABS: TOTAL BILIRUBIN ADULT 0.5 MG/DL (0.2-1.0)
[2017-03-03 00:03] LABS: ALKALINE PHOSPHATASE 86 U/L (45-117)
[2017-03-03] MEDS ORDERED: ZOFR8TAB PO (00:14)
[2017-03-03] MEDS ORDERED: HYDR-3533 PO (00:39)
[2017-03-03 00:45] VITALS: BP 180/94; PULSE 68; RESP 18; O2SAT 98
[2017-03-03] MEDS ORDERED: LORazepam 2 MG/ML VIAL IV PUSH ONE (00:45)
[2017-03-03 00:56] VITALS: RESP 18
[2017-03-03 01:23] VITALS: BP 179/92
== END 2017-03-03 01:27 | disposition home or self-care (01) ==
LOC: PHED 22:09
DX: N20.1 Calculus of ureter (principal); R10.9 Unspecified abdominal pain; Z79.01 Long term (current) use of anticoagulants; E78.00 Pure hypercholesterolemia, unspecified; I10 Essential (primary) hypertension
CPT/HCPCS: 74176; 80053; 83690; 85025; 96361; 96374; 96375; 99285; J1885; J2060; J2405; J7030